=== PATIENT | female | born 1970 | race African-American/Black ===

== ENCOUNTER 2020-01-28 15:20 | Emergency (ER) | payer OTHER ==
[~2020-01-28] VITALS: Ht 170.2 cm; Wt 112.0 kg
[2020-01-28 15:45] VITALS: BP 146/102
[2020-01-28] MEDS ORDERED: [UNRECOGNIZED DRUG - REMARK] (15:52)
[2020-01-28] MEDS ORDERED: BUPROPION XL300 MG PO (16:35)
[2020-01-28] MEDS ORDERED: WELLBUTRIN XL300 MG PO (16:35)
[2020-01-28] MEDS ORDERED: INDERAL LA120 M1 PO (16:35)
== END 2020-01-28 16:42 | disposition left against medical advice (07) ==
LOC: M.ERS 15:20
DX: Z53.21 Procedure and treatment not carried out due to patient leaving prior to being seen by health care provider (principal)

== ENCOUNTER 2020-02-09 05:12 | Emergency (ER) | payer OTHER ==
[~2020-02-09] VITALS: Ht 170.2 cm; Wt 101.6 kg
[~2020-02-09 05:12] MED LIST: BUPROPION XL300 MG PO; INDERAL LA120 M1 PO; WELLBUTRIN XL300 MG PO; [UNRECOGNIZED DRUG - REMARK]
[2020-02-09 06:10] LABS: CALCIUM 8.8 mg/dL (8.5-10.1); CREATININE 1.1 mg/dL (0.6-1.3); POTASSIUM 3.9 mmol/L (3.5-5.1)
[2020-02-09 06:11] LABS: ALBUMIN 3.7 g/dL (3.4-5.0); MAGNESIUM 2.1 mg/dL (1.8-2.4); TOTAL BILIRUBIN 0.4 mg/dL (<0.1-1.0); TOTAL PROTEIN 7.8 g/dL (6.4-8.2)
[2020-02-09 07:09] LABS: ABSOLUTE BASOPHILS 0.1 thou/uL (0.0-0.2); ABSOLUTE LYMPHOCYTES 1.6 thou/uL (0.8-5.3); ABSOLUTE MONOCYTES 0.4 thou/uL (0.0-1.2); ABSOLUTE NEUTROPHILS 11.4 thou/uL (1.6-8.1); BASOPHILS 0.6 %; EOSINOPHILS 0.1 %; HEMATOCRIT 41.1 % (37.0-47.0); HEMOGLOBIN 13.7 gm/dL (12.0-15.0); LYMPHOCYTES 11.8 %; MCH 30.4 pg (26.0-34.0); MCHC 33.3 g/dL (28.0-37.0); MCV 91.2 fL (80.0-100.0); MONOCYTES 3.3 %; MPV 8.7 fl. (7.2-11.1); NUCLEATED RBCS 0 /100WBC; PLATELET COUNT* 293 thou/uL (150-400); POLYS 84.2 %; RBC 4.51 mil/uL (4.20-5.00); RDW-CV 13.2 % (10.5-14.5); WBC 13.5 thou/uL (4.0-11.0)
[2020-02-09 08:52] LABS: URINE BILIRUBIN NEGATIVE (Negative); URINE BLOOD TRACE (Negative); URINE CLARITY CLEAR; URINE COLOR YELLOW; URINE GLUCOSE-RANDOM NEGATIVE (Negative); URINE KETONES NEGATIVE (Negative); URINE LEUKOCYTES-REFLEX NEGATIVE (Negative); URINE NITRITE-REFLEX NEGATIVE (Negative); URINE PROTEIN NEGATIVE (Negative); URINE UROBILINOGEN 0.2 E.U./dl (0.2-1.0)
[2020-02-09 09:00] LABS: AMP/METHAMP POSITIVE (Negative); BARBITURATES Negative (Negative); BENZODIAZEPINES Negative (Negative); COCAINE Negative (Negative); METHADONE Negative (Negative); OPIATES Negative (Negative); PCP Negative (Negative); THC POSITIVE (Negative)
[2020-02-09] MEDS ORDERED: ZOFRAN ODT4 MG PO (09:14)
[2020-02-09 09:36] VITALS: BP 128/71
--- NOTE | 2020-02-09 10:37 | EKG ---
[place] [address] ELECTROCARDIOGRAM REPORT Name: CHAPARROALEKSEYERNESTINA [id number] Admission: 02/09/20 Attend Phys: Discharge: 02/09/20 Date of : 68 Date of Service: 02/09/20 0541 Report #: [id number] THIS REPORT FOR: //name// [facility] ED Test Date: 2020-02-09 Test Time: 05:41:24 Pat Name: ERNESTINA ORTIZ Department: Room: Gender: F [employer] Pumper: : 1970 Requested By: Alicia Mercado Order Number: [id number] MD: Isak Rivera Measurements Intervals [place] Rate: 93 P: 40 W[place]: 187 QRS: 39 QRSD: 93 T: 17 QT: 385 QTc: 479 Interpretive Statements Sinus rhythm No previous ECG available for comparison Electronically Signed On 02-09-2020 10:37:26 CDT by Isak Rivera [email or web address] <ELECTRONICALLY SIGNED> By: Isak Rivera MD, MERGED WITH [facility] 02/09/20 [facility] 0541 0541 Isak Rivera MD, FACC /EPI
== END 2020-02-09 09:37 | disposition home or self-care (01) ==
LOC: M.ERS 05:12
PROVIDERS: Emergency Medicine
DX: R11.2 Nausea with vomiting, unspecified (principal); I10 Essential (primary) hypertension; Z88.2 Allergy status to sulfonamides; Z90.710 Acquired absence of both cervix and uterus

== ENCOUNTER → 2020-03-31 | Outpatient (CLI) | payer OTHER ==
[~2020-03-31] MED LIST changes: +ZOFRAN ODT4 MG PO
== END ==
LOC: M.RAD 12:45
PROVIDERS: ATTEND Specialist
DX: M19.071 Primary osteoarthritis, right ankle and foot (principal); Z87.891 Personal history of nicotine dependence

== ENCOUNTER 2020-07-20 19:57 | Emergency (ER) | payer OTHER ==
[~2020-07-20] VITALS: Ht 170.2 cm; Wt 102.1 kg
[2020-07-20 20:29] VITALS: BP 195/110
[2020-07-20] MEDS ORDERED: PROAIR HFA8.5 GM INH (20:33)
--- NOTE | 2020-07-21 13:02 | EKG ---
[place] [address] ELECTROCARDIOGRAM REPORT Name: ERNESTINA ORTIZ Room: [facility]#: [id number] Admission: 07/20/20 Attend Phys: Discharge: 07/20/20 Date of : 68 Date of Service: 07/20/202036 Report #: [id number] THIS REPORT FOR: //name// [facility] ED Test Date: 2020-07-20 Test Time: 20:37:03 Pat Name: ERNESTINA ORTIZ Department: Room: Gender: Java Developer Analyst: CELY : 1970 Requested By: Alicia Mercado Order Number: [id number] MD: Chris Cordova Measurements Intervals [place] Rate: 97 P: 39 [place]: 160 QRS: 36 QRSD: 102 T: 28 QT: 372 QTc: 473 Interpretive Statements Sinus rhythm Baseline wander in lead(s) V2 Compared to ECG 02/09/2020 05:41:24 No significant changes Electronically Signed On 07-21-2020 13:02:33 CDT by Chris Cordova [email or web address] <ELECTRONICALLY SIGNED> By: Chris Cordova MD, FAC 07/21/20 1302 36 36 Chris Cordova MD, [facility] /EPI
== END 2020-07-20 20:57 | disposition left against medical advice (07) ==
LOC: M.ERS 19:57
DX: Z53.21 Procedure and treatment not carried out due to patient leaving prior to being seen by health care provider (principal); Z20.822 Contact with and (suspected) exposure to COVID-19

== ENCOUNTER → 2020-07-29 | Outpatient (CLI) | payer OTHER ==
[~2020-07-29] MED LIST changes: +PROAIR HFA8.5 GM INH
[2020-07-29 16:34] LABS: ABSOLUTE BASOPHILS 0.1 thou/uL (0.0-0.2); ABSOLUTE EOSINOPHILS 0.1 thou/uL (0.0-0.7); ABSOLUTE LYMPHOCYTES 3.1 thou/uL (0.8-5.3); ABSOLUTE MONOCYTES 0.6 thou/uL (0.0-1.2); BASOPHILS 0.7 %; EOSINOPHILS 0.7 %; HEMATOCRIT 42.1 % (37.0-47.0); HEMOGLOBIN 14.1 gm/dL (12.0-15.0); LYMPHOCYTES 31.3 %; MCHC 33.5 g/dL (28.0-37.0); MCV 89.7 fL (80.0-100.0); MONOCYTES 6.4 %; MPV 8.9 fl. (7.2-11.1); NUCLEATED RBCS 0 /100WBC; PLATELET COUNT* 323 thou/uL (150-400); POLYS 60.9 %; RBC 4.69 mil/uL (4.20-5.00); RDW-CV 13.2 % (10.5-14.5); WBC 9.8 thou/uL (4.0-11.0)
[2020-07-29 16:51] LABS: ALBUMIN 3.5 g/dL (3.4-5.0); CALCIUM 9.3 mg/dL (8.5-10.1); CREATININE 0.7 mg/dL (0.6-1.3); POTASSIUM 4.5 mmol/L (3.5-5.1); TOTAL BILIRUBIN 0.2 mg/dL (<0.1-1.0); TOTAL PROTEIN 8.1 g/dL (6.4-8.2)
== END ==
LOC: M.LAB 16:11
PROVIDERS: ATTEND Specialist
DX: J98.8 Other specified respiratory disorders (principal); R06.02 Shortness of breath

== ENCOUNTER 2020-09-05 22:44 | Emergency (ER) | payer OTHER ==
[~2020-09-05] VITALS: Ht 170.2 cm; Wt 99.8 kg
[2020-09-05] MEDS ORDERED: NEURAPTINE1 GM (23:11)
[2020-09-05] MEDS ORDERED: LYRICA20 MG/1 ML PO (23:11)
[2020-09-05] MEDS ORDERED: XOPENEX0.31 MG/3 (23:15)
[2020-09-06] MEDS ORDERED: FLEXERIL PO (00:40)
[2020-09-06 01:15] VITALS: BP 171/96
== END 2020-09-06 01:15 ==
LOC: M.ERS 22:44
DX: M62.838 Other muscle spasm (principal); M54.2 Cervicalgia; R51.9 Headache, unspecified; M54.5 Low back pain; M54.6 Pain in thoracic spine; I10 Essential (primary) hypertension; Z90.710 Acquired absence of both cervix and uterus; Z88.1 Allergy status to other antibiotic agents; Z88.2 Allergy status to sulfonamides; Y08.89XA Assault by other specified means, initial encounter; Y93.89 Activity, other specified; Y92.89 Other specified places as the place of occurrence of the external cause; Y99.8 Other external cause status

== ENCOUNTER → 2020-10-29 | Outpatient (CLI) | payer OTHER ==
[~2020-10-29] MED LIST changes: +FLEXERIL PO; +LYRICA20 MG/1 ML PO; +NEURAPTINE1 GM; +XOPENEX0.31 MG/3
[2020-10-29 12:58] LABS: ABSOLUTE BASOPHILS 0.1 thou/uL (0.0-0.2); ABSOLUTE EOSINOPHILS 0.1 thou/uL (0.0-0.7); ABSOLUTE MONOCYTES 0.5 thou/uL (0.0-1.2); ABSOLUTE NEUTROPHILS 5.3 thou/uL (1.6-8.1); BASOPHILS 0.9 %; EOSINOPHILS 0.6 %; HEMATOCRIT 44.5 % (37.0-47.0); HEMOGLOBIN 15.2 gm/dL (12.0-15.0); LYMPHOCYTES 33.4 %; MCH 30.4 pg (26.0-34.0); MCHC 34.2 g/dL (28.0-37.0); MONOCYTES 5.6 %; NUCLEATED RBCS 0 /100WBC; PLATELET COUNT* 344 thou/uL (150-400); POLYS 59.5 %; RDW-CV 13.3 % (10.5-14.5); WBC 8.9 thou/uL (4.0-11.0)
== END ==
LOC: M.LAB 12:04
PROVIDERS: ATTEND Specialist
DX: R05 Cough (principal); R06.02 Shortness of breath; Z91.09 Other allergy status, other than to drugs and biological substances